=== PATIENT | female | born 1935 | race Caucasian/White ===

== ENCOUNTER 2017-10-04 08:30 | Day surgery (SDC) | payer MEDICARE ==
[2017-10-04] MEDS ORDERED: PROPOFOL 10 MG/ML VIAL IV ONE (08:31)
[2017-10-04] MEDS ORDERED: LIDOCAINE 2% MDV (20MG/ML) 20ML VIAL IV ONE ×2 (08:31)
[2017-10-04] MEDS ORDERED: EPINEPHRINE 1 MG/ML AMPUL SQ ONE (08:31)
[2017-10-04] MEDS ORDERED: TETRACAINE HCL 0.5% 15 ML OPTH BTL OPTH ONE (08:31)
[2017-10-04] MEDS ORDERED: NEOMYCIN/POLY./DEXAM OPTH OINT OPTH ONE (08:31)
[2017-10-04] MEDS ORDERED: CIPROFLOXACIN HCL 0.0015 GM, PHENYLEPHRINE HCL 0.05 GM, KETOROLAC TROMETHAMINE 0.000625 GM MC ONE ×5 (11:15)
--- NOTE | 2017-10-04 16:18 | OP NOTE CHAMES ---
DATE OF PROCEDURE: 10/04/17 PREOPERATIVE DIAGNOSIS: Nuclear sclerotic cataract and posterior subcapsular cataract, right eye. POSTOPERATIVE DIAGNOSIS: Nuclear sclerotic cataract and posterior subcapsular cataract, right eye. OPERATION: Phacoemulsification of cataractous lens with implantation of intraocular lens. LENS IMPLANT USED: Pabon Model PCB00 + 22.5 diopters. COMPLICATIONS: None. PROCEDURE IN DETAIL: Following a retrobulbar and facial block, the patient was prepped and draped in the usual fashion for eye surgery. A lid speculum was placed in the right eye after which a 2.4 mm tunnel wound was placed at the temporal limbus and dissected into clear cornea. A paracentesis was placed at 2 oclock hours to the left and right of the initial incision and the chamber deepened with Viscoelastic. The keratome was then used to enter the anterior chamber after which the continuous circular capsulorrhexis was accomplished without difficulty using a bent needle and a Utrata forceps. Hydrodissection and hydrodelineation of the lens was performed after which the nucleus of the lens was removed using the Phaco handpiece in the [id number] technique. The residual cortical material was irrigated and aspirated from the eye after which the bag and chamber were re-examined. The bag was re-inflated with Viscoelastic and the intraocular lens injected into the capsular bag where it centered well. The Viscoelastic was then copiously irrigated and aspirated from the eye after which the temporal tunnel wound and paracentesis were hydrated and the wounds were examined. They were noted to be watertight. The lid speculum was removed from the eye and the eye patched and shielded. The patient was transferred to the recovery room in satisfactory condition and given an appointment to be reexamined in the clinic later today or as directed by Dr. Herndon. JOB NUMBER: [id number] [facility]ITAL[facility]
== END 2017-10-04 10:50 | disposition home or self-care (01) ==
LOC: SUR 08:30
PROVIDERS: ATTEND Ophthalmology
DX: H25.11 Age-related nuclear cataract, right eye (principal); H25.041 Posterior subcapsular polar age-related cataract, right eye
CPT/HCPCS: J0171

== ENCOUNTER 2017-10-18 09:19 | Day surgery (SDC) | payer MEDICARE ==
[2017-10-18] MEDS ORDERED: NEOMYCIN/POLY./DEXAM OPTH OINT OPTH ONE (09:20)
[2017-10-18] MEDS ORDERED: EPINEPHRINE 1 MG/ML AMPUL SQ ONE (09:20)
[2017-10-18] MEDS ORDERED: LIDOCAINE 1% MPF 100MG/10ML STERILE-PAK AMPULE IV ONE (09:20)
[2017-10-18] MEDS ORDERED: LIDOCAINE 2% MDV (20MG/ML) 20ML VIAL IV ONE ×2 (09:20)
[2017-10-18] MEDS ORDERED: TETRACAINE HCL 0.5% 15 ML OPTH BTL OPTH ONE (09:20)
[2017-10-18] MEDS ORDERED: TETRACAINE HCL 0.5% OPTH 2ML SOLU OPTH ONE (09:20)
[2017-10-18] MEDS ORDERED: PROPOFOL 10 MG/ML VIAL IV ONE (09:20)
[2017-10-18] MEDS ORDERED: CIPROFLOXACIN HCL 0.0015 GM, PHENYLEPHRINE HCL 0.05 GM, KETOROLAC TROMETHAMINE 0.000625 GM MC ONE ×5 (14:15)
--- NOTE | 2017-10-18 17:22 | OP NOTE CHAMES ---
DATE OF PROCEDURE: 10/18/17 PREOPERATIVE DIAGNOSIS: Nuclear sclerotic cataract, left eye. POSTOPERATIVE DIAGNOSIS: Nuclear sclerotic cataract, left eye. OPERATION: Phacoemulsification of cataractous lens with implantation of intraocular lens. LENS IMPLANT USED: Pabon Model PCB00 + 23.5 diopters. COMPLICATIONS: None. PROCEDURE IN DETAIL: Following a retrobulbar and facial block, the patient was prepped and draped in the usual fashion for eye surgery. A lid speculum was placed in the left eye after which a 2.4 mm tunnel wound was placed at the temporal limbus and dissected into clear cornea. A paracentesis was placed at 2 oclock hours to the left and right of the initial incision and the chamber deepened with Viscoelastic. The keratome was then used to enter the anterior chamber after which the continuous circular capsulorrhexis was accomplished without difficulty using a bent needle and a Utrata forceps. Hydrodissection and hydrodelineation of the lens was performed after which the nucleus of the lens was removed using the Phaco handpiece in the [id number] technique. The residual cortical material was irrigated and aspirated from the eye after which the bag and chamber were re-examined. The bag was re-inflated with Viscoelastic and the intraocular lens injected into the capsular bag where it centered well. The Viscoelastic was then copiously irrigated and aspirated from the eye after which the temporal tunnel wound and paracentesis were hydrated and the wounds were examined. They were noted to be watertight. The lid speculum was removed from the eye and the eye patched and shielded. The patient was transferred to the recovery room in satisfactory condition and given an appointment to be reexamined in the clinic later today or as directed by Dr. Herndon. JOB NUMBER: [id number] MTDD
== END 2017-10-18 11:40 | disposition home or self-care (01) ==
LOC: SUR 09:19
PROVIDERS: ATTEND Ophthalmology
DX: H25.12 Age-related nuclear cataract, left eye (principal); I10 Essential (primary) hypertension
CPT/HCPCS: J0171; J3490

== ENCOUNTER 2019-01-25 20:57 | Emergency (ER) | payer MEDICARE ==
--- NOTE | 2019-01-25 21:54 | Emergency Department Record ---
History of Present Illness - General Chief complaint: Cold Stated complaint: HEAD STUFFED UP Time Seen by Provider: 01/25/19 21:13 Source: Patient Mode of Arrival: Ambulatory Limitations: No limitations - History of Present Illness Initial comments: pt has been sick for a week w congestion, productive yellow cough, sore throat, nausea MD complaint: Sore throat Onset/Timin -: Week(s) Improves with: NSAID Worsens with: None Associated Symptoms: Cough, Rhinorrhea, Sore throat - Related Data Home Medications Medication Instructions Recorded Confirmed Last Taken Lisinopril 1 tab PO DAILY 01/25/19 01/25/19 01/25/19 Previous Rx's Medication Instructions Recorded Azithromycin [Zithromax] 250 mg PO DAILY #4 tab 01/25/19 Allergies Allergy/AdvReac Type Severity Reaction Status Date / Time No Known Drug Allergies Allergy Verified 09/25/17 15:59 Travel Screening - Travel/Exposure Within Last 30 Days Have you traveled within the last 30 days?: No - Travel/Exposure Within Last Year Have you traveled outside the [place] in the last year?: No - Additonal Travel Details Have you been exposed to anyone with a communicable illness?: No - Travel Symptoms Symptom Screening: None Review of Systems Reviewed: No additional complaints except as noted below Constitutional: Reports: As per HPI. Denies: Chills, Fever, Malaise, Night swea ts, Weakness, Weight change Eyes: Reports: As per HPI. Denies: Eye discharge, Eye pain, Photophobia, Vision change ENT: Reports: As per HPI, Congestion, Throat pain. Denies: Dental pain, Ear pain, Epistaxis, Hearing loss Respiratory: Reports: As per HPI, Cough. Denies: Dyspnea, Hemoptysis, Stridor, Wheezes Cardiovascular: Reports: As per HPI. Denies: Arrhythmia, Chest pain, Dyspnea on exertion, Edema, Murmurs, Orthopnea, Palpitations, Paroxysmal nocturnal dyspnea, Rheumatic Fever, Syncope Endocrine: Reports: As per HPI. Denies: Fatigue, Heat or cold intolerance, P olydipsia, Polyuria Gastrointestinal: Reports: As per HPI. Denies: Abdominal pain, Constipation, Diarrhea, Hematemesis, Hematochezia, Melena, Nausea, Vomiting Genitourinary: Reports: As per HPI. Denies: Abnormal menses, Discharge, Dyspareunia, Dysuria, Frequency, Hematuria, Incontinence, Retention, Urgency Musculoskeletal: Reports: As per HPI. Denies: Arthralgia, Back pain, Gout, Joint swelling, Myalgia, Neck pain Skin: Reports: As per HPI. Denies: Bruising, Change in color, Change in hair/n ails, Lesions, Pruritus, Rash Neurological: Reports: As per HPI. Denies: Abnormal gait, Confusion, Headache, Numbness, Paresthesias, Seizure, Tingling, Tremors, Vertigo, Weakness Psychiatric: Reports: As per HPI. Denies: Anxiety, Auditory hallucinations, Depression, Homicidal thoughts, Suicidal thoughts, Visual hallucinations Hematological/Lymphatic: Reports: As per HPI. Denies: Anemia, Blood Clots, Easy bleeding, Easy bruising, Swollen glands Past Medical History - SOCIAL HISTORY Smoking Status: Never smoker Alcohol Use: Rare Drug Use: None - RESPIRATORY Hx Respiratory Disorders: Yes Hx Bronchitis: Yes Hx Pneumonia: Yes - CARDIOVASCULAR Hx Cardio Disorders: Yes Hx Hypertension: Yes (on meds good control) - NEURO Hx Neuro Disorders: No - GI Hx GI Disorders: No - Hx Genitourinary Disorders: Yes Hx UTI: Yes - ENDOCRINE Hx Endocrine Disorders: No - MUSCULOSKELETAL Hx Musculoskeletal Disorders: Yes Hx Arthritis: Yes Comment:: 3 compression fx's lumbar, broken pelvis and right shoulder - PSYCH Hx Psych Problems: No - HEMATOLOGY/ONCOLOGY Hx Hematology/Oncology Disorders: Yes Hx Blood Transfusions: Yes Hx Blood Transfusion Reaction: No Family Medical History Any Significant Family History?: Yes Family Hx Comment (NOT TO BE USED IN PLACE OF ITEMS BELOW): mom and sister blind from diabetes. brother with PAD Hx Diabetes: Mother, Brother/Sister Hx Heart Disease: Mother Physical Exam - General General Appearance: Alert, Oriented x3, Cooperative, No acute distress - Head Head exam: Normal inspection - Eye Eye exam: Normal appearance, PERRL, EOMI Pupils: Normal accommodation - ENT ENT exam: Normal exam, Mucous membranes moist, Normal external ear exam, Normal orophraynx Ear exam: Normal external inspection. negative: External canal tenderness Nasal Exam: Normal inspection. negative: Discharge, Sinus tenderness Mouth exam: Normal external inspection, Tongue normal Teeth exam: Normal inspection. negative: Dental caries Throat exam: Tonsillar erythema. negative: Tonsillar exudate - Neck Neck exam: Normal inspection, Full ROM. negative: Tenderness - Respiratory Respiratory exam: Normal lung sounds bilaterally. negative: Respiratory distress - Cardiovascular Cardiovascular Exam: Regular rate, Normal rhythm, Normal heart sounds - GI/Abdominal GI/Abdominal exam: Soft, Normal bowel sounds. negative: Tenderness - Rectal Rectal exam: Deferred - exam: Deferred - Extremities Extremities exam: Normal inspection, Full ROM, Normal capillary refill. negative: Tenderness - Back Back exam: Reports: Normal inspection, Full ROM. Denies: Muscle spasm, Rash noted, Tenderness - Neurological Neurological exam: Alert, CN II-XII intact, Normal gait, Oriented X3 - Psychiatric Psychiatric exam: Normal affect, Normal mood - Skin Skin exam: Dry, Intact, Normal color, Warm Course Vital Signs 01/25/19 21:03 Temperature 98.1 F Pulse Rate [ 79 Pulse Ox Probe] Respiratory 20 Rate Blood Pressure 197/101 [Left Arm] Pulse Ox 98 Medical Decision Making - Lab Data Result diagrams: 01/25/19 21:50 01/25/19 21:50 Disposition Disposition: Discharge Clinical Impression: Bronchitis Hypertension Qualifiers: Hypertension type: essential hypertension Qualified Code(s): I10 - Essential (primary) hypertension Disposition: Home, Self-Care Condition: (1) Good Instructions: Acute Bronchitis (ED) Additional Instructions: follow up with family doctor on sunday to have blood pressure rechecked. reurn sooner if worse. push fluids. tylenol or motrin as needed Prescriptions: Azithromycin [Zithromax] 250 mg PO DAILY #4 tab Forms: Patient Portal Access Quality - Quality Measures Quality Measures: N/A - Blood Pressure Screening Does Patient Have Any of the Following: Active Dx of HTN Blood Pressure Classification: Hypertensive Reading Systolic Measurement: 145 Diastolic Measurement: 79 Screening for High Blood Pressure: Patient Exclusion, Hx of HTN [G9744]
[2019-01-25 21:58] LABS: ABSOLUTE NEUTROPHIL COUNT 5.07; HEMATOCRIT 39.8 % (35.0-47.0); HEMOGLOBIN 12.9 gm/dl (11.6-16.0); MEAN CELL VOLUME 97.1 fl (81-97); MEAN CORPUSCULAR HEMOGLOBIN 31.5 pg (27-33); MEAN CORPUSCULAR HGB CONC 32.4 g/dl (32-36); MEAN PLATELET VOLUME 10.3 fl (7.4-10.4); PLATELET COUNT 188 K/uL (130-400); RED CELL DISTRIBUTION WIDTH 12.9 % (11.5-14.5); WHITE BLOOD COUNT W/O DIFF 8.7 K/uL (4.2-12.2)
[2019-01-25 22:11] LABS: BLOOD UREA NITROGEN 14 mg/dL (8-23); CREATININE 0.6 mg/dL (0.5-0.9); EST GLOMERULAR FILTRATION RATE > 60 mL/min
[2019-01-25 22:13] LABS: GLUCOSE,RANDOM 115 mg/dL (74-109)
[2019-01-25] MEDS ORDERED: AZITHROMYCIN 500 MG TABLET PO ONE (22:19)
[2019-01-25] MEDS ORDERED: CLONIDINE HCL 0.1 MG TABLET PO ONE (23:20)
--- NOTE | 2019-01-28 09:49 | RADIOLOGY REPORT ---
EXAM: CHEST, TWO VIEWS HISTORY: PRODUCTIVE COUGH WITH YELLOW SPUTUM FOR THE PAST THREE WEEKS. TECHNIQUE: PA and lateral upright views of the chest were obtained. Comparison: 09/04/18. FINDINGS: The heart, mediastinum, and pulmonary vasculature are normal. There is calcification and tortuosity of the aorta. There is increased thoracic kyphosis secondary to stable compression deformities within the mid and lower thoracic levels. The lungs are clear. There is no pneumothorax or effusion. Degenerative changes are present within the spine and right shoulder. IMPRESSION: 1. NO ACUTE CHEST PATHOLOGY. 2. 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 JOB NUMBER: [id number] MTDD
== END 2019-01-26 00:45 | disposition home or self-care (01) ==
LOC: ER 20:57
DX: J20.9 Acute bronchitis, unspecified (principal); R11.0 Nausea; J02.9 Acute pharyngitis, unspecified; I10 Essential (primary) hypertension
CPT/HCPCS: 71046; 80048; 85027; 99283; 99284